=== PATIENT | male | born 1925 | race African-American/Black ===

== ENCOUNTER 2016-10-31 11:33 | Emergency (ER) | payer BC ==
[~2016-10-31] VITALS: Ht 182.9 cm; Wt 90.7 kg
[~2016-10-31 11:33] MED LIST: AMLO5TAB2 PO; CIPR-217 PO; LISI10TA6
[2016-10-31 12:07] VITALS: BP 155/93
== END 2016-10-31 12:23 | disposition home or self-care (01) ==
LOC: ER 11:41
DX: Z46.6 Encounter for fitting and adjustment of urinary device (principal); N40.0 Benign prostatic hyperplasia without lower urinary tract symptoms; G30.9 Alzheimer's disease, unspecified; F02.80 Dementia in other diseases classified elsewhere, unspecified severity, without behavioral disturbance, psychotic disturbance, mood disturbance, and anxiety; J44.9 Chronic obstructive pulmonary disease, unspecified; I10 Essential (primary) hypertension; Z86.73 Personal history of transient ischemic attack (TIA), and cerebral infarction without residual deficits
CPT/HCPCS: 51702

== ENCOUNTER 2017-02-09 17:55 | Emergency (ER) | payer BC ==
[~2017-02-09] VITALS: Ht 182.9 cm; Wt 90.7 kg
[2017-02-09 19:32] LABS: Urine Bilirubin Negative (Negative); Urine Blood 2+ /uL (Negative); Urine Color Yellow (Yellow); Urine Glucose Normal (Normal); Urine Ketone Negative (Negative); Urine Nitrite POSITIVE (Negative); Urine RBC 47 /hpf (0 - 3); Urine Urobilinogen Normal (Negative); Urine pH 5.5 (5.0-8.0)
[2017-02-09 23:35] VITALS: BP 117/60
== END 2017-02-10 00:11 | disposition home or self-care (01) ==
LOC: ER 17:59
DX: N40.1 Benign prostatic hyperplasia with lower urinary tract symptoms (principal); R33.8 Other retention of urine; N39.0 Urinary tract infection, site not specified; I10 Essential (primary) hypertension; J44.9 Chronic obstructive pulmonary disease, unspecified; Z46.6 Encounter for fitting and adjustment of urinary device
CPT/HCPCS: 51702; 76700; 81001